=== PATIENT | male | born 1975 | race Caucasian/White ===

== ENCOUNTER → 2020-05-27 15:19 | Outpatient (BNVA) | payer OTHER, SELFPAY | PROVIDERS: Family Provider Nurse Practitioner Family; PCP Nurse Practitioner Family; Visit Provider Nurse Practitioner Family | DX: Z11.59 Encounter for screening for other viral diseases (principal); J06.9 Acute upper respiratory infection, unspecified | CPT/HCPCS: 87635 ==

== ENCOUNTER → 2022-06-10 08:34 | Outpatient (BNVA) | payer SELFPAY | PROVIDERS: Family Provider Nurse Practitioner Family; PCP Nurse Practitioner Family; Visit Provider Nurse Practitioner Family | DX: E11.9 Type 2 diabetes mellitus without complications (principal); E78.5 Hyperlipidemia, unspecified; I10 Essential (primary) hypertension | CPT/HCPCS: 80053; 80061; 83036; 85025 ==

== ENCOUNTER → 2022-07-23 12:20 | Outpatient (BNVA) | payer SELFPAY | PROVIDERS: Family Provider Nurse Practitioner Family; PCP Nurse Practitioner Family; Visit Provider Nurse Practitioner Family | DX: R50.9 Fever, unspecified (principal) | CPT/HCPCS: 87400 ==

== ENCOUNTER → 2022-09-15 09:41 | Outpatient (BNVA) | payer SELFPAY | PROVIDERS: Family Provider Nurse Practitioner Family; PCP Nurse Practitioner Family; Visit Provider Nurse Practitioner Family | DX: I10 Essential (primary) hypertension (principal); E11.9 Type 2 diabetes mellitus without complications | CPT/HCPCS: 80053; 83036 ==

== ENCOUNTER → 2023-01-13 10:03 | Outpatient (BNVA) | payer SELFPAY | PROVIDERS: Family Provider Nurse Practitioner Family; PCP Nurse Practitioner Family; Visit Provider Nurse Practitioner Family | DX: E11.9 Type 2 diabetes mellitus without complications (principal); I10 Essential (primary) hypertension | CPT/HCPCS: 80053; 83036 ==

== ENCOUNTER → 2023-04-28 09:05 | Outpatient (BNVA) | payer SELFPAY | PROVIDERS: Family Provider Nurse Practitioner Family; PCP Nurse Practitioner Family; Visit Provider Nurse Practitioner Family | DX: E11.9 Type 2 diabetes mellitus without complications (principal); I10 Essential (primary) hypertension | CPT/HCPCS: 80053; 80061; 82043; 83036 ==

== ENCOUNTER 2023-05-28 11:17 | Emergency (ER) | payer SELFPAY ==
[2023-05-28 11:20] VITALS: BP 198/116; PULSE 72; RESP 17; TEMP 36.6; O2SAT 98; BMI 38.7
--- NOTE | 2023-05-28 11:41 | XRR_ITS ---
PROCEDURE INFORMATION: Exam: XR Left Elbow Exam date and time: 05/28/2023 12:13 PM Age: 48 years old Clinical indication: Injury or trauma; Fall; Blunt trauma (contusions or hematomas); Elbow; Left TECHNIQUE: Imaging protocol: Radiologic exam of the left elbow. Views: 3 or more views. COMPARISON: No relevant prior studies available. FINDINGS: Bones/joints: Accessory ossicles. Otherwise, unremarkable. Soft tissues: Normal. XR/XR elbow LT min 3V* [id number] IMPRESSION: No acute findings.
--- NOTE | 2023-05-28 13:16 | ED_ITS ---
HPI - Extremity Problem General: Chief complaint: Extremity Injury, Upper Stated complaint: left elbow injury Time Seen by Provider: 05/28/23 13:16 History of Present Illness: 48-year-old male patient comes in today with injury to the left elbow. Patient reports that he was pushing a bale of hay off the back end of his truck when he slipped and fell between the truck and bale hay striking his elbow against the truck. Patient has pain and discomfort with movement of the elbow. Patient appears nontoxic. Pain is exacerbated with movement of the elbow. Patient appears in no pain at rest. Associated symptoms: Deny chest pain or fever(s) Review of Systems General: Reports: 10 or more systems reviewed and unremarkable except in HPI and below Const: Denies: fever(s) Card: Denies: chest pain Resp: Denies: dyspnea GI: Denies: vomiting Musc: Reports: extremity pain and joint pain (Left elbow) PFS ED PFSH: Medical History Diabetes Hyperlipidemia Hypertension Family History Father CAD (coronary artery disease) Diabetes Hypertension Hyperlipidemia Grandfather Cancer Paternal Lung disease paternal Grandmother Cancer paternal Lung disease maternal Mother Hypertension Denies family history of Dementia Chronic kidney disease (CKD) Stroke Social History Smoking and tobacco/nicotine status: never used tobacco/nicotine Alcohol intake: never Substance/Drug Use: never Adopted: No Lives independently: Yes Household members: spouse Housing: House Marital status: Physical Exam Const: COMMON NORMALS: alert HENMT: HEAD & SCALP: normal to inspection Neck/C-Spine: COMMON NORMALS: full ROM Resp: COMMON NORMALS: normal respiratory effort and clear to auscultation bilaterally AUSCULTATION: clear to auscultation bilaterally Cardio: COMMON NORMALS: regular rate RATE: regular rate GI: COMMON NORMALS: non-tender Back/Pelvis: COMMON NORMALS: thoracic and lumbar spine normal to inspection Extremity: COMMON NORMALS: full ROM LEFT UPPER EXTREMITY: Yes elbow joint (Lateral elbow tenderness) Left elbow: Yes inspection, Yes palpation, Yes ROM (Normal range of motion) and Yes neurovascular exam (Normal sensation and pulse cap refill) Neuro: SENSORIUM/ORIENTATION: Yes alert Skin: COMMON NORMALS: turgor normal GENERAL SKIN EXAM: turgor normal Course Vital Signs: Vital signs: Vital Signs Temperature 98 F 05/28/23 11:20 Pulse Rate 72 05/28/23 11:20 Respiratory Rate 17 05/28/23 11:20 Blood Pressure 198/116 05/28/23 11:20 Pulse Oximetry 98 05/28/23 11:20 Oxygen Delivery Me thod Room Air 05/28/23 11:20 MDM - Extremity (Nontraumatic) Medical Decision Making 48-year-old male patient comes in today for complaints of injury to the left elbow. On exam patient has tenderness to the lateral aspect of the elbow. Patient has good range of motion. Normal sensation and distal pulses are noted. Differential diagnosis includes but not limited to fracture, dislocation, sprain, contusion. X-ray notes no acute injury, it was noted patient calcification along the tendon sheath, and degenerative changes. Reviewed exam with patient with recommendations for treatment including ice, acetaminophen, and ibuprofen. Patient reported understanding of care plan and need for follow- up or return to the ER. Lab Data Radiology Impressions Elbow X-Ray 05/28/23 11:41 IMPRESSION: No acute findings. All radiology interpretation(s) finalized by discharge Discharge Plan Discharge Patient Disposition: Home Clinical Impression: Elbow contusion Qualifiers: Encounter type: initial encounter Laterality: left Qualified Code(s): S50.02XA - Contusion of left elbow, initial encounter Condition: Stable Prescriptions: No Action lisinopril 5 mg tablet See Rx Instructions .ROUTE .COMPLEX Qty: 90 0RF Dose Instruction: Take 1 tablet by mouth once daily Rx Instructions: Take 1 tablet by mouth once daily Ozempic 1 mg/dose (4 mg/3 mL) pen injector See Rx Instructions .ROUTE .COMPLEX Qty: 3 0RF Dose Instruction: inject 1mg SUBCUTANEOUSLY every week Rx Instructions: inject 1mg SUBCUTANEOUSLY every week Discharge Orders: Discharge ED (Routine); Ordered 05/28/23 Ordered By: Michele Olivas Referrals: Francheska Burden FNP [Primary Care Provider] - Discharge Diet: Usual diet Discharge Activity: Increase activity as tolerated Patient Instructions: Musculoskeletal Pain (ED) Activity Restrictions/Additional Instructions: activity as tolerated, ice packs on and off 10 minute intervals for pain, acetaminophen and ibuprofen for further pain relief. Follow-up with primary care for further treatment and evaluation. Coding Level of Care Code ED Home Help Aide for Efrain Landeros
[2023-05-28 13:41] VITALS: BP 171/94; PULSE 67; O2SAT 98
== END 2023-05-28 13:42 | disposition home or self-care (01) ==
PROVIDERS: Emergency Provider Nurse Practitioner Family; PCP Nurse Practitioner Family
DX: S50.02XA Contusion of left elbow, initial encounter (principal); E11.9 Type 2 diabetes mellitus without complications; E78.5 Hyperlipidemia, unspecified; I10 Essential (primary) hypertension; W01.198A Fall on same level from slipping, tripping and stumbling with subsequent striking against other object, initial encounter
CPT/HCPCS: 73080; 99283

== ENCOUNTER → 2023-07-21 08:46 | Outpatient (BNVA) | payer SELFPAY | PROVIDERS: PCP Nurse Practitioner Family; Visit Provider Nurse Practitioner Family | DX: I10 Essential (primary) hypertension (principal); E11.9 Type 2 diabetes mellitus without complications; E78.5 Hyperlipidemia, unspecified; E78.2 Mixed hyperlipidemia | CPT/HCPCS: 80053; 80061; 83036 ==

== ENCOUNTER → 2023-10-18 08:15 | Outpatient (BNVA) | payer SELFPAY | PROVIDERS: PCP Nurse Practitioner Family; Visit Provider Nurse Practitioner Family | DX: E78.2 Mixed hyperlipidemia (principal); E11.9 Type 2 diabetes mellitus without complications; I10 Essential (primary) hypertension | CPT/HCPCS: 80053; 80061; 83036 ==

== ENCOUNTER → 2024-05-10 09:32 | Outpatient (BNVA) | payer SELFPAY | PROVIDERS: PCP Nurse Practitioner Family; Visit Provider Nurse Practitioner Family | DX: R53.83 Other fatigue (principal); N52.2 Drug-induced erectile dysfunction | CPT/HCPCS: 84403 ==

== ENCOUNTER → 2024-08-01 09:56 | Outpatient (BNVA) | payer SELFPAY | PROVIDERS: PCP Nurse Practitioner Family; Visit Provider Nurse Practitioner Family | DX: E78.2 Mixed hyperlipidemia (principal); E11.9 Type 2 diabetes mellitus without complications; I10 Essential (primary) hypertension; E55.9 Vitamin D deficiency, unspecified | CPT/HCPCS: 80053; 80061; 82306; 83036 ==

== ENCOUNTER → 2024-12-25 16:01 | Outpatient (BNVA) | payer SELFPAY | PROVIDERS: PCP Nurse Practitioner Family; Visit Provider Nurse Practitioner Family | DX: I10 Essential (primary) hypertension (principal); E11.9 Type 2 diabetes mellitus without complications; E78.2 Mixed hyperlipidemia | CPT/HCPCS: 80053; 80061; 83036 ==

== ENCOUNTER 2025-01-02 06:26 | Outpatient (CLI) | payer SELFPAY ==
--- NOTE | 2025-01-02 06:30 | MR_ITS ---
WS: [id number] MRI LUMBAR SPINE NONCONTRAST HISTORY: M54.50 - Low back pain, unspecified, RIGHT leg radiculopathy. COMPARISON: None available. TECHNIQUE: Sagittal and axial multisequence imaging is submitted. Thoracic disc protrusion at T6-7 contacts the thoracic cord. Normal lumbar alignment with no compression fractures or marrow edema. Disc spaces and vertebral body heights are well-preserved. Conus terminates normally at L1-2 disc level. L1-L2: Normal. L2-L3: Mild ligamentum flavum and facet arthritis. No stenosis. L3-L4: Mild annular disc bulging. RIGHT foraminal disc protrusion and osteophyte complex. Moderate ligamentum flavum and facet arthritis. Very mild disc contact on the RIGHT L3 and L4 nerve roots. Very mild narrowing of the LEFT foramen. L4-L5: Diffuse annular disc bulging and osteophytic ridging. Small bilateral annular fissures. Severe ligamentum flavum and facet arthritis. There is encroachment upon the thecal sac with severe central, subarticular recess and moderate bilateral foraminal stenosis, LEFT greater than RIGHT. There is a small facet joint cyst on the RIGHT at L4-5 along with mild synovitis of the facet joints at L4-5 and L5-S1. L5-S1: Diffuse annular disc bulge with a central disc protrusion. Mild osteophytosis. No definite contact on the S1 nerve roots. Moderate facet arthritis. Heterogeneous signal measuring 6.2 mm associated with a nerve root in the thecal sac at the L4-5 disc level. This is low signal peripherally and an increased signal in the central portion of the mass. MR/MR lumbar spine wo con* [id number] IMPRESSION: 1. Thoracic disc protrusion at T6-7 contacts the thoracic cord. 2. 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 This needs to be further evaluated with IV contra st. Recommend follow-up MRI lumbar spine with contrast at this time. Differenti al includes nerve sheath tumors and metastatic disease. 3. L4-5: Severe central, subarticular recess and moderate foraminal stenosis, LEFT greater than RIGHT. 4. Small facet joint cyst and synovitis on the RIGHT at L4-5. Additional synov itis on the RIGHT at L5-S1. 5. L3-4: RIGHT foraminal disc protrusion and osteophyte complex. There is mild disc contact on the RIGHT L3 and L4 nerve roots.
== END 2025-01-02 06:27 | disposition home or self-care (01) ==
PROVIDERS: PCP Nurse Practitioner Family; Visit Provider Nurse Practitioner Family
DX: M51.24 Other intervertebral disc displacement, thoracic region (principal); D43.4 Neoplasm of uncertain behavior of spinal cord; M99.63 Osseous and subluxation stenosis of intervertebral foramina of lumbar region; M51.26 Other intervertebral disc displacement, lumbar region; M65.98 Unspecified synovitis and tenosynovitis, other site
CPT/HCPCS: 72148

== ENCOUNTER → 2025-05-16 08:24 | Outpatient (BNVA) | payer SELFPAY | PROVIDERS: PCP Nurse Practitioner Family; Visit Provider Nurse Practitioner Family | DX: I10 Essential (primary) hypertension (principal); E11.9 Type 2 diabetes mellitus without complications; E78.2 Mixed hyperlipidemia | CPT/HCPCS: 80053; 80061; 83036; 84443 ==